=== PATIENT | male | born 1990 | race Caucasian/White ===

== ENCOUNTER 2016-09-22 00:05 | Emergency (ER) | payer BC, OTHER ==
[~2016-09-22] VITALS: Ht 170.2 cm; Wt 74.0 kg
[~2016-09-22 00:05] MED LIST: ACET-1256 PO; ALBUAER2 PO
[2016-09-22 00:19] VITALS: Ht 170.2 cm; Wt 74.0 kg
[2016-09-22] MEDS ORDERED: CYCLOBENZAPRINE HCL 10 MG TAB PO STA (00:27)
[2016-09-22] MEDS ORDERED: OXYCODONE HCL IR 5 MG TAB (IMMEDIATE RELEASE) PO STA (00:27)
[2016-09-22] MEDS ORDERED: IBUPROFEN 600 MG TAB PO STA (00:27)
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
[2016-09-22] MEDS ORDERED: IBUP600T44 PO (01:09)
[2016-09-22] MEDS ORDERED: CYCL10TA6 PO (01:09)
[2016-09-22] MEDS ORDERED: OXYCODONE IR HOME PACK PO ONE (01:15)
[2016-09-22 01:27] VITALS: BP 125/78; PULSE 89; TEMP 36.9; O2SAT 97
--- NOTE | 2016-09-22 07:36 | DIAGNOSTIC IMAGING REPORT ---
LUMBAR SPINE 5 VIEWS CLINICAL HISTORY: Chronic low back pain. FINDINGS: 5 views of the lumbar spine are compared to study dated 12/29/[address] scan of the lumbar spine dated 03/13/2016. The skeletal structures are well mineralized. There is no radiographic evidence of fracture or malalignment. Vertebral body height and alignment are maintained. The transverse and spinous processes are intact. There is no evidence of spondylolysis. The intervertebral disc spaces are well-maintained. Small anterior osteophytes are noted at L5. The visualized bony pelvis appears intact. There is a nonobstructed abdominal bowel gas pattern. IMPRESSION: No acute bony abnormality is seen involving the lumbosacral spine. Electronically signed by: Bruce Mejía M.D. 09/22/2016 7:35 AM Dictated Date/Time: 09/22/2016 7:34 AM
== END 2016-09-22 01:28 | disposition home or self-care (01) ==
LOC: C.EDB 00:07 → C.EDC 01:28
DX: M54.5 Low back pain (principal); F17.200 Nicotine dependence, unspecified, uncomplicated

== ENCOUNTER 2016-12-11 22:33 | Emergency (ER) | payer BC ==
[~2016-12-11] VITALS: Ht 170.2 cm; Wt 73.7 kg
[~2016-12-11 22:33] MED LIST changes: -ACET-1256 PO; -ALBUAER2 PO; +IBUP600T44 PO
[2016-12-11 22:35] VITALS: TEMP 36.8; Ht 170.2 cm; Wt 73.7 kg
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
[2016-12-11] MEDS ORDERED: NORCO 5/325MG HOME PACK PO ONE (23:15)
[2016-12-11] MEDS ORDERED: HYDR-5688 PO (23:20)
[2016-12-11 23:44] VITALS: BP 122/78; PULSE 84; O2SAT 97
--- NOTE | 2016-12-12 06:38 | DIAGNOSTIC IMAGING REPORT ---
RIGHT SHOULDER MIN 2 VIEWS ROUTINE CLINICAL HISTORY: RIGHT, EVAL PAIN Right pain COMPARISON: None. DISCUSSION: The bones and joint spaces appear intact. There is no evidence of fracture, dislocation or bony disease. There is no evidence for soft tissue swelling. IMPRESSION: Negative study. Electronically signed by: Ramsey Diaz M.D. 12/12/2016 6:36 AM Dictated Date/Time: 12/12/2016 6:36 AM
== END 2016-12-11 23:45 | disposition home or self-care (01) ==
LOC: C.EDB 22:34 → C.EDA 23:45
DX: M25.511 Pain in right shoulder (principal); X50.1XXA Overexertion from prolonged static or awkward postures, initial encounter; F17.210 Nicotine dependence, cigarettes, uncomplicated

== ENCOUNTER 2016-12-30 15:47 | Emergency (ER) | payer BC, OTHER ==
[~2016-12-30] VITALS: Ht 170.2 cm; Wt 76.8 kg
[~2016-12-30 15:47] MED LIST changes: +HYDR-5688 PO; -IBUP600T44 PO
[2016-12-30 15:59] VITALS: TEMP 36.4; Ht 170.2 cm; Wt 76.8 kg
[2016-12-30] MEDS ORDERED: ONDANSETRON 4MG OD TAB PO ONE (17:30)
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
--- NOTE | 2016-12-30 17:31 | DIAGNOSTIC IMAGING REPORT ---
RIGHT ELBOW MIN 3 VIEWS ROUTINE CLINICAL HISTORY: Right elbow pain status post trauma COMPARISON: None. DISCUSSION: The fat pads are not displaced. No fractures or dislocations are visualized. IMPRESSION: No fractures or dislocations identified. Electronically signed by: Rocael Osborne M.D. 12/30/2016 5:30 PM Dictated Date/Time: 12/30/2016 5:29 PM
--- NOTE | 2016-12-30 17:32 | DIAGNOSTIC IMAGING REPORT ---
RIGHT FOREARM 2 VIEWS ROUTINE CLINICAL HISTORY: Right forearm pain status post trauma COMPARISON: None. DISCUSSION: No fractures or dislocations are visualized. IMPRESSION: No fractures identified. Electronically signed by: Rocael Osborne M.D. 12/30/2016 5:30 PM Dictated Date/Time: 12/30/2016 5:30 PM
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
[2016-12-30] MEDS ORDERED: IBUPROFEN 600 MG TAB PO STA (17:34)
[2016-12-30 18:11] VITALS: BP 133/74; PULSE 78; O2SAT 97
[2016-12-30] MEDS ORDERED: VNTHFA/IN INH (23:04)
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
== END 2016-12-30 18:22 | disposition home or self-care (01) ==
LOC: EDBD 15:47 → C.EDA 15:48
DX: S69.91XA Unspecified injury of right wrist, hand and finger(s), initial encounter (principal); V43.52XA Car driver injured in collision with other type car in traffic accident, initial encounter; R51 Headache; R11.0 Nausea; F17.200 Nicotine dependence, unspecified, uncomplicated; Z87.820 Personal history of traumatic brain injury; Z87.828 Personal history of other (healed) physical injury and trauma; Z79.899 Other long term (current) drug therapy; Z80.9 Family history of malignant neoplasm, unspecified; Z83.79 Family history of other diseases of the digestive system; Z82.49 Family history of ischemic heart disease and other diseases of the circulatory system; Z84.1 Family history of disorders of kidney and ureter

== ENCOUNTER → 2017-03-20 | Outpatient (CLI) | payer OTHER ==
[~2017-03-20] MED LIST changes: -HYDR-5688 PO; +VNTHFA/IN INH
--- NOTE | 2017-03-20 12:22 | DIAGNOSTIC IMAGING REPORT ---
R HAND MIN 3 VIEWS ROUTINE CLINICAL HISTORY: 26 years-old Male presenting with CONTUSION R HAND. TECHNIQUE: Frontal, oblique, and lateral views the right hand were obtained. COMPARISON: 09/23/2008. FINDINGS: No acute fracture or malalignment. No radiopaque foreign body. No radiographic evidence of soft tissue swelling. IMPRESSION: No acute osseous injury of the right hand. Electronically signed by: Ayo Hackett M.D. 03/20/2017 12:20 PM Dictated Date/Time: 03/20/2017 12:19 PM
== END | disposition home or self-care (01) ==
LOC: C.RAD1850 11:52
PROVIDERS: ATTEND Preventive Medicine Occupational Medicine
DX: S60.221A Contusion of right hand, initial encounter (principal); X58.XXXA Exposure to other specified factors, initial encounter

== ENCOUNTER → 2017-03-31 | Outpatient (CLI) | payer OTHER ==
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
== END | disposition home or self-care (01) ==
LOC: C.MRI 09:23 → EDSTATUS 10:00
PROVIDERS: ATTEND Preventive Medicine Occupational Medicine
DX: R60.0 Localized edema (principal); R93.7 Abnormal findings on diagnostic imaging of other parts of musculoskeletal system